=== PATIENT | male | born 1995 | race Caucasian/White ===

== ENCOUNTER 2016-12-02 22:44 | Emergency (ER) | payer SELFPAY ==
[2016-12-02 23:55] VITALS: RESP 16
--- NOTE | 2016-12-03 02:00 | EDPHY ---
H & P Stated Complaint: pt was at the concert took unknown medication, given versed 3mg im, 2mgiv Time Seen by Provider: 12/02/16 22:48 HPI/ROS: Chief Complaint: Agitation, altered mental status HPI: 21-year-old male was at the [employer] concert this evening. Patient states that he was using LSD and marijuana. Patient became paranoid and agitated. EMS was called. They did give him Versed IM and IV. Patient denies any other injuries. No chest pain or shortness of breath. No nausea or vomiting. Patient is awake, confused but answering some questions. ROS: 10 point Review of Systems is negative except as noted in the HPI. PMH: None Medications: None Allergies: None Social History: Positive smoking, positive alcohol, LSD and marijuana Family History: non-contributory Physical Exam: Gen: Awake, Alert, mildly agitated HEENT: Nose: no rhinorrhea Eyes: PERRLA, EOMI Mouth: Moist mucosa Neck: Supple, no JVD Chest: nontender, lungs clear to auscultation Heart: S1, S2 normal, no murmur Abd: Soft, non-tender, no guarding Back: no CVA tenderness, no midline tenderness Ext: no edema, non-tender Skin: no rash Neuro: CN II-XII intact, Sensation grossly intact, Strength 5/5 in bilateral upper and lower extremities - Personal History Current Tetanus/Diphtheria Vaccine: Unsure - Medical/Surgical History Hx Asthma: No Hx Chronic Respiratory Disease: No Hx Diabetes: No Hx Cardiac Disease: No Hx Renal Disease: No Hx Cirrhosis: No Hx Alcoholism: No Hx HIV/AIDS: No Hx Splenectomy or Spleen Trauma: No Other PMH: ADHD - Social History Smoking Status: Unknown if ever smoked Constitutional: Initial Vital Signs Heart Rate 77 12/02/16 23:53 Respiratory Rate 16 12/02/16 23:53 Blood Pressure 108/84 H 12/02/16 23:53 O2 Sat (%) 92 12/02/16 23:53 O2 Delivery Mode Room Air Allergies/Adverse Reactions: No Known Allergies Allergy (Unverified 12/02/16 22:56) Home Medications: Medication Instructions Recorded Adderall 10 MG (*) 12/02/16 Medical Decision Making ED Course/Re-evaluation: 0200 Patient is now awake and appropriate. Ambulating unassisted to the bathroom. No current complaints. Medically cleared for the [facility] Departure - Departure Disposition: Home, Routine, Self-Care Clinical Impression: Polysubstance abuse Condition: Good Instructions: Polysubstance Abuse (ED) Additional Instructions: Follow up with primary care physician for any concerns. Return to the emergency depart for increasing chest pain, shortness of breath, fevers, chills, nausea, vomiting, or any other concerns. Referrals: Patient,NotPresent [Primary Care Provider] - As per Instructions
[2016-12-03 02:12] VITALS: TEMP 97.9
[2016-12-03 02:27] VITALS: BP 125/71; PULSE 73; O2SAT 97
== END 2016-12-03 02:35 | disposition home or self-care (01) ==
DX: F19.10 Other psychoactive substance abuse, uncomplicated (principal)